=== PATIENT | male | born 1955 | race Caucasian/White ===

== ENCOUNTER 2019-07-29 18:16 | Emergency (ER) | payer MEDICARE, MEDICAID ==
[~2019-07-29] VITALS: Ht 182.9 cm; Wt 68.5 kg
--- NOTE | 2019-07-29 19:28 | NUR ---
PT BIBS AAOX4. AMBULATORY WITH STEADY GAIT. C/O "KO 1 WEEKS AGO". RR EVEN AND UNLABORED. NO NEURO DEFICIT, PERRLA. Placed on monitor and pulse ox. Awaiting MD for eval. Pt states he is not homeless and lives with his friend.
--- NOTE | 2019-07-29 19:45 | NUR ---
LINE INITIATED, LABS COLLECTED.
[2019-07-29 20:07] LABS: BASOPHILS % (AUTO) 0.9 % (0.0-2.0); EOSINOPHILS % (AUTO) 2.2 % (0.0-6.0); HEMATOCRIT 46 % (39-51); HEMOGLOBIN 15.7 g/dL (13.5-17.5); LYMPHOCYTES # (AUTO) 2.1 /CMM (0.8-4.8); MEAN CORPUSCULAR HGB CONC 34 g/dl (31.0-36.0); MEAN CORPUSCULAR VOLUME 97 fL (80-96); MONOCYTES # (AUTO) 0.5 /CMM (0.1-1.30); MONOCYTES % (AUTO) 10.5 % (2.0-12.0); NEUTROPHILS # (AUTO) 1.7 /CMM (1.8-8.9); NEUTROPHILS % (AUTO) 38.4 % (43.0-81.0); PLATELET COUNT (AUTO) 186 /CMM (150-450); RED BLOOD CELL COUNT(AUTO) 4.76 MIL/uL (4.5-6.0); WHITE BLOOD COUNT (AUTO) 4.4 K/uL (4.3-11.0)
[2019-07-29 20:13] LABS: CALCIUM, SERUM 8.9 mg/dL (8.5-10.1); CARBON DIOXIDE 32 mmol/L (21-32); CHLORIDE 106 mmol/L (98-107); CREATININE 0.7 mg/dL (0.6-1.3); GLUCOSE 88 mg/dL (74-106); SODIUM SERUM 146 mmol/L (136-145); UREA NITROGEN, BLOOD 10 mg/dL (7-18)
--- NOTE | 2019-07-29 20:26 | NUR ---
BROUGHT TO CT
--- NOTE | 2019-07-29 21:10 | NUR ---
COSTUMED CHARACTER AT BEDSIDE. PT STATES I HAVE BEEN DANCING WITH THE DEVIL AND I DON'T FEEL SAFE, I WANT TO HURT MYSELF.
--- NOTE | 2019-07-29 21:24 | NUR ---
URINE COLLECTED AND SENT TO LAB
[2019-07-29 21:31] LABS: ALANINE AMINOTRANSFERASE 15 U/L (12-78); ALBUMIN 3.1 g/dL (3.4-5.0); ALKALINE PHOSPHATASE 62 U/L (46-116); ASPARTATE AMINOTRANSFERASE 19 U/L (15-37); BILIRUBIN,DIRECT 0.1 mg/dL (0.0-0.2); BILIRUBIN,TOTAL 0.2 mg/dL (0.2-1.0); SALICYLATE 5.7 mg/dL (2.8-20.0); TOTAL PROTEIN, SERUM 6.1 g/dL (6.4-8.2)
[2019-07-29 21:32] LABS: ACETAMINOPHEN 0 ug/ml (10-30); ALCOHOL, BLOOD < 3 mg/dL (0-0)
[2019-07-29 21:37] LABS: APPEARANCE,URINE CLEAR (CLEAR); BILIRUBIN,URINE SMALL (NEGATIVE); BLOOD, URINE NEGATIVE Ery/uL (NEGATIVE); COLOR,URINE YELLOW (YELLOW); KETONES,URINE TRACE (NEGATIVE); LEUKOCYTE ESTERASE ,URINE NEGATIVE (NEGATIVE); NITRITE, URINE NEGATIVE (NEGATIVE); PROTEIN,URINE NEGATIVE (NEGATIVE); UGLUCOSE NEGATIVE (NEGATIVE); UROBILINOGEN,URINE 0.2 EU/dL (0.2)
[2019-07-29 21:46] LABS: BACTERIA,URINE Rare /HPF (None Seen); RBC,URINE 0-2 /HPF (0-2); SQUAMOUS EPITHELIAL CELL,UR Few /HPF (None Seen); WBC,URINE 0-2 /HPF (0-3)
--- NOTE | 2019-07-29 22:26 | NUR ---
JOSE ALDRIDGE FROM [facility], EXPECTING PATIENT AT COUNT INCLUDES THE [facility]. CLINICAL INFORMATION FAXED TO [facility]
--- NOTE | 2019-07-29 23:31 | NUR ---
Patient is resting comfortably in bed with eyes closed. Easily aroused. VSS.
--- NOTE | 2019-07-30 00:26 | NUR ---
PER [place], note on clicical med cleared. Phone number for report [phone] [address] Accepting MD Wilde
--- NOTE | 2019-07-30 00:30 | NUR ---
CALLED [facility] FOR TRANSPORTATION [facility] [phone] TRIP NUMBER [phone]
--- NOTE | 2019-07-30 00:44 | NUR ---
CALLED [facility] FOR TRANSPORTATION ETA [phone]
[2019-07-30 01:41] VITALS: BP 114/62
--- NOTE | 2019-07-30 02:25 | NUR ---
REPORT GIVEN TO ORLANDO THOMPSON FOR [facility] AND AMISHA GARNER
== END 2019-07-30 02:28 ==
LOC: ER 18:28
DX: F22 Delusional disorders (principal); R53.81 Other malaise; R51 Headache; I10 Essential (primary) hypertension; Z60.2 Problems related to living alone
CPT/HCPCS: 36415; 70450; 80048; 80076; 80305; 80307; 80329; 81001; 84484; 85025; 93005; 99285; G0480; 81000-TC

== ENCOUNTER 2019-07-30 15:09 | Emergency (ER) | payer MEDICARE, MEDICAID ==
[~2019-07-30] VITALS: Ht 167.6 cm; Wt 81.6 kg
[2019-07-30 15:23] VITALS: BP 135/69
== END 2019-07-30 16:04 | disposition home or self-care (01) ==
LOC: ER 15:12
DX: M54.5 Low back pain (principal); G89.29 Other chronic pain; I10 Essential (primary) hypertension; Z98.890 Other specified postprocedural states; Z60.2 Problems related to living alone

== ENCOUNTER 2022-10-28 08:27 | Emergency (ER) | payer MEDICARE, OTHER ==
[~2022-10-28] VITALS: Ht 180.3 cm; Wt 64.9 kg
--- NOTE | 2022-10-28 08:27 | NUR ---
BIB RA 881 FROM HOME STATING HE HAS BEEN FEELING DEPRESSED FOR THE PAST MONTHS, LOST HIS APPETITE, UNABLE TO SLEEP, AND LOST WEIGHT. DENIES ANY SUICIDAL IDEATION, STATES THAT HE HAS BEEN FEELING SAD AND DOES NOT KNOW WHY. ATTACHED TO MONITOR, VITALS ARE WITHIN NORMAL LIMITS. WARM BLANKET PROVIDED FOR COMFORT. AWAITING MD CLIFTON.
--- NOTE | 2022-10-28 08:30 | NUR ---
BIBA PATIENT REPORT OF DEPRESSION AND NOT EATING WELL FOR A MONTH PRIOR
--- NOTE | 2022-10-28 08:34 | NUR ---
PUT ON BED . OFFERED URINAL FOR URINE COLLECTION.
--- NOTE | 2022-10-28 08:51 | NUR ---
COVID SWAB DONE AND SENT TO LAB
--- NOTE | 2022-10-28 08:52 | NUR ---
PARKING CONTROL OFFICER AT BEDSIDE DRAWING SHAMEKA
[2022-10-28 08:59] LABS: BASOPHILS % (AUTO) 0.6 % (0.0-2.0); EOSINOPHILS % (AUTO) 0.7 % (0.0-6.0); HEMATOCRIT 43 % (39-51); HEMOGLOBIN 14.4 g/dL (13.5-17.5); LYMPHOCYTES # (AUTO) 1.3 K/uL (0.8-4.8); LYMPHOCYTES % (AUTO) 30.4 % (20.0-44.0); MEAN CORPUSCULAR HGB CONC 34 g/dl (31.0-36.0); MEAN CORPUSCULAR VOLUME 92 fL (80-96); MONOCYTES # (AUTO) 0.3 K/uL (0.1-1.30); MONOCYTES % (AUTO) 5.8 % (2.0-12.0); NEUTROPHILS # (AUTO) 2.7 K/uL (1.8-8.9); NEUTROPHILS % (AUTO) 62.5 % (43.0-81.0); PLATELET COUNT (AUTO) 226 K/uL (150-450); RED BLOOD CELL COUNT(AUTO) 4.64 MIL/uL (4.5-6.0); WHITE BLOOD COUNT (AUTO) 4.3 K/uL (4.3-11.0)
[2022-10-28 09:12] LABS: CALCIUM, SERUM 9.1 mg/dL (8.5-10.1); CARBON DIOXIDE 31 mmol/L (21-32); CHLORIDE 101 mmol/L (98-107); CREATININE 0.8 mg/dL (0.6-1.3); GLUCOSE 113 mg/dL (74-106); POTASSIUM 3.7 mmol/L (3.5-5.1); SODIUM SERUM 138 mmol/L (136-145); UREA NITROGEN, BLOOD 11 mg/dL (7-18)
[2022-10-28 09:16] LABS: ALANINE AMINOTRANSFERASE 21 U/L (12-78); ALBUMIN 3.4 g/dL (3.4-5.0); ALCOHOL, BLOOD < 3 mg/dL (0-0); ALKALINE PHOSPHATASE 72 U/L (46-116); ASPARTATE AMINOTRANSFERASE 13 U/L (15-37); BILIRUBIN,DIRECT 0.2 mg/dL (0.0-0.2); BILIRUBIN,TOTAL 0.6 mg/dL (0.2-1.0); TOTAL PROTEIN, SERUM 6.4 g/dL (6.4-8.2)
--- NOTE | 2022-10-28 09:54 | NUR ---
SW Consult: SW met with patient. Patient presented with depression. Patient reported that he has been feeling depressed for a while. He stated that he is feeling depressed because of his physical condition and having limited support at home. He stated that he does not have any family support. [facility] reported [facility] He reported that he does not see a psychiatrist but does see an MD who prescribes his antidepressant. He stated that he has been experiencing insomnia. He stated he is currently on Prozac and is unsure if it has been effective. SW offered pt options. He would want to go to a mental health unit to continue treatment. He currently denies suicidal or homicidal. Patient denies visual/auditory hallucinations. Patient lives at [address] [place] [address]; ([phone]). DC PLAN: Pt would want to go to a mental health unit as a voluntary pt. KERRIE notified Rocio and Dr. Ivan of the plan.
--- NOTE | 2022-10-28 09:59 | NUR ---
FAXED CLINICALS TO [facility].
--- NOTE | 2022-10-28 11:40 | NUR ---
urine collected and sent to lab.
[2022-10-28 11:57] LABS: BILIRUBIN,URINE NEGATIVE (NEGATIVE); COLOR,URINE YELLOW (YELLOW); LEUKOCYTE ESTERASE ,URINE NEGATIVE (NEGATIVE); NITRITE, URINE NEGATIVE (NEGATIVE); PH,URINE 8.5 (5.0-8.0); PROTEIN,URINE NEGATIVE (NEGATIVE); UGLUCOSE NEGATIVE (NEGATIVE)
[2022-10-28] MEDS ORDERED: IBUP-1955 PO (12:01)
--- NOTE | 2022-10-28 12:01 | NUR ---
PT STATED THAT HE WANTED TO GO HOME. [facility] WAS CALLED AND TRANSPORTATION WAS SET UP FOR PT.
[2022-10-28 12:14] LABS: BACTERIA,URINE Rare /HPF (None Seen); RBC,URINE NONE SEEN /HPF (0-2); SQUAMOUS EPITHELIAL CELL,UR Rare /HPF (None Seen); WBC,URINE NONE SEEN /HPF (0-3)
[2022-10-28 12:15] LABS: URINE AMORPHOUS URATE Moderate /HPF (None Seen)
[2022-10-28 12:18] VITALS: BP 130/61
== END 2022-10-28 12:19 | disposition home or self-care (01) ==
LOC: ER 08:29
DX: U07.1 COVID-19 (principal); F32.9 Major depressive disorder, single episode, unspecified; G47.00 Insomnia, unspecified; I10 Essential (primary) hypertension; F17.200 Nicotine dependence, unspecified, uncomplicated; Z60.2 Problems related to living alone
CPT/HCPCS: 36415; 80048-TC; 80076-TC; 81001; 84443-TC; 85025-TC; C9803; G0480